=== PATIENT | female | born 1960 | race Native Hawaiian/Other Pacific Islander ===

== ENCOUNTER 2017-02-15 15:47 | Outpatient (CLI) | payer OTHER | END 2017-02-15 19:06 | disposition home or self-care (01) | LOC: RAD 15:47 | DX: M54.5 Low back pain (principal) ==

== ENCOUNTER 2017-05-28 08:32 | Outpatient (CLI) | payer OTHER | END 2017-05-28 18:59 | disposition home or self-care (01) | LOC: MRI 08:32 | DX: M54.16 Radiculopathy, lumbar region (principal) ==

== ENCOUNTER 2017-12-22 21:12 | Outpatient (CLI) | payer OTHER | END 2017-12-22 21:28 | disposition short-term general hospital (02) | LOC: AMB 21:12 | DX: M79.605 Pain in left leg (principal); M79.604 Pain in right leg; W10.8XXA Fall (on) (from) other stairs and steps, initial encounter; Y92.098 Other place in other non-institutional residence as the place of occurrence of the external cause | CPT/HCPCS: A0425; A0427 ==

== ENCOUNTER 2019-01-31 13:54 | Emergency (ER) | payer OTHER ==
[~2019-01-31] VITALS: Ht 175.3 cm; Wt 83.9 kg
[2019-01-31 17:08] VITALS: BP 120/72; TEMP 97.9
== END 2019-01-31 17:11 | disposition home or self-care (01) ==
LOC: ED 13:54
DX: S05.12XA Contusion of eyeball and orbital tissues, left eye, initial encounter (principal); S13.4XXA Sprain of ligaments of cervical spine, initial encounter; S09.8XXA Other specified injuries of head, initial encounter; W18.39XA Other fall on same level, initial encounter; Y92.89 Other specified places as the place of occurrence of the external cause
CPT/HCPCS: 99283

== ENCOUNTER 2021-11-25 07:49 | Inpatient (IN) | payer OTHER ==
[~2021-11-25] VITALS: Ht 175.3 cm; Wt 90.4 kg
[2021-11-25 07:53] VITALS: BP 144/83; TEMP 103.2
[2021-11-25 08:27] LABS: PLATELET COUNT 198 K/uL (152-353)
[2021-11-25 08:38] LABS: POTASSIUM 3.2 mmol/L (3.6-5.2)
[2021-11-25 08:45] LABS: PARTIAL THROMBOPLASTIN TIME 24.3 SECONDS (24.5-33.6)
[2021-11-25 13:18] VITALS: BP 96/62; TEMP 98.3; Ht 175.3 cm; Wt 90.4 kg
[2021-11-25] MEDS ORDERED: BELBUCA750 MCG PO (14:23)
[2021-11-25] MEDS ORDERED: PREGABALIN150 MG PO (14:24)
[2021-11-25] MEDS ORDERED: TIZANIDINE HYDRO4 M1 PO (14:26)
[2021-11-25] MEDS ORDERED: IBU800 MG PO (14:27)
[2021-11-25] MEDS ORDERED: DULOXETINE HYDR60 MG PO (14:29)
[2021-11-25 16:00] VITALS: BP 93/55; TEMP 97.7
[2021-11-25 20:00] VITALS: BP 100/70; TEMP 97.5
[2021-11-26] VITALS: BP 99/47; TEMP 97.8
[2021-11-26 04:00] VITALS: BP 101/62; TEMP 97.8
[2021-11-26 05:09] LABS: POTASSIUM 3.5 mmol/L (3.6-5.2)
[2021-11-26 05:47] LABS: PLATELET COUNT 155 K/uL (152-353)
[2021-11-26 08:00] VITALS: BP 83/47; TEMP 97.5
[2021-11-26 12:00] VITALS: BP 100/55; TEMP 97.6
[2021-11-26 16:00] VITALS: BP 107/56; TEMP 98.1
[2021-11-26 20:00] VITALS: BP 106/58; TEMP 97.7
[2021-11-27] VITALS: BP 110/63; TEMP 98.2
[2021-11-27 04:00] VITALS: BP 117/72; TEMP 97.8
[2021-11-27 05:23] LABS: PLATELET COUNT 164 K/uL (152-353)
[2021-11-27 05:33] LABS: POTASSIUM 3.9 mmol/L (3.6-5.2)
[2021-11-27 08:00] VITALS: BP 131/68; TEMP 98.9
== END 2021-11-27 12:37 | disposition home or self-care (01) | DRG 193 ==
LOC: ED 07:49 → MED/SURG 10:50
PROVIDERS: Emergency Medicine; ADMIT Internal Medicine Endocrinology, Diabetes & Metabolism; ATTEND Internal Medicine Endocrinology, Diabetes & Metabolism
DX: J18.8 Other pneumonia, unspecified organism (principal); J96.01 Acute respiratory failure with hypoxia; J44.0 Chronic obstructive pulmonary disease with (acute) lower respiratory infection; J44.1 Chronic obstructive pulmonary disease with (acute) exacerbation; N17.8 Other acute kidney failure; Z72.0 Tobacco use; E87.6 Hypokalemia; M54.59 Other low back pain; G89.4 Chronic pain syndrome; R73.9 Hyperglycemia, unspecified
CPT/HCPCS: 36415; 80048; 80053; 83605; 83880; 84484; 85027; 85379; 85610; 85730; 87040; 87635; 93005; 94640; 94664; 94760; 96360; 96365; 96366; 99284; J0456; J0696; J2920; Q9963; U0003